=== PATIENT | female | born 1960 | race Caucasian/White ===

== ENCOUNTER 2021-10-27 15:00 | Observation (INO) ==
[2021-10-27] MEDS ORDERED: *HR* HYDROmorphone (PF) 1 MG/ML SYRINGE IVP ONE (15:09)
[2021-10-27] MEDS ORDERED: 0.9 % Sodium Chloride 1,000 ML IVC ONE ×2 (15:09→16:46)
[2021-10-27] MEDS ORDERED: Ondansetron 4 MG/2 ML VIAL IVP ONE (15:10)
[2021-10-27 15:26] LABS: Basophils # 0.1 K/mcL (0.0-0.2); Basophils % 0.3 %; Eosinophils # 0.1 K/mcL (0.0-0.6); Eosinophils % 0.4 %; Hematocrit 46.1 % (35.3-44.9); Hemoglobin 15.5 g/dL (11.5-15.4); Immature Granulocytes % 0.9 % (0-4); Lymphocytes # 4.9 K/mcL (0.6-4.6); Lymphocytes % 18.9 %; Mean Corpuscular HGB Conc 33.6 g/dL (31.6-35.5); Mean Corpuscular Hemoglobin 25.1 pg (28.0-33.3); Mean Corpuscular Volume 74.6 fL (83.0-100.0); Mean Platelet Volume 10.9 fL (9.4-12.4); Monocytes # 0.8 K/mcL (0.0-1.3); Neutrophils # 19.7 K/mcL (1.6-8.9); Platelet Count 433 K/mcL (140-400); Red Blood Count 6.18 M/mcL (3.82-4.97); Red Cell Distribution Width 14.3 % (11.5-14.5); Segmented Neutrophils % 76.5 %; White Blood Count 25.7 K/mcL (4.3-11.1)
[2021-10-27 15:46] LABS: Albumin 4.2 g/dL (3.5-5.7); Albumin/Globulin Ratio 0.8 (1.1-2.2); Bilirubin,Direct 0.2 mg/dL (0.0-0.2); Bilirubin,Indirect 0.5 mg/dL (0.0-1.0); Bilirubin,Total 0.7 mg/dL (0.3-1.0); Calcium 10.5 mg/dL (8.6-10.3); Globulin 5.2 g/dL (2.4-3.5); Potassium 2.9 mEq/L (3.5-5.1); Total Protein 9.4 g/dL (6.4-8.9)
[2021-10-27] MEDS ORDERED: Potassium Chloride Elixir 20 MEQ/15 ML UDC PO ONE ×2 (16:11→21:00)
[2021-10-27 16:31] LABS: Bilirubin,Urine Small (Negative); Blood,Urine Negative (Negative); Clarity,Urine Clear (Clear); Color,Urine Dark Yellow (Yellow); Glucose,Urine (UA) >=1000 mg/dL (Normal); Ketones,Urine Negative (Negative); Leukocyte Esterase,Urine Negative (Negative); Nitrite,Urine Negative (Negative); PH,Urine 5.5 pH Units (5.0-8.0); Protein,Urine 30 mg/dL (Neg-Trace); Specific Gravity,Urine <= 1.005 (1.010-1.025)
[2021-10-27 16:42] LABS: WBC,Urine 0-3 per hpf (0-3)
[2021-10-27] MEDS ORDERED: Ketorolac 30 MG/ML VIAL IVP ONE (17:34)
[2021-10-27] MEDS ORDERED: MetroNIDAZOLE 500 MG/100 ML 500 MG/100 ML BAG IVPB ONE (17:40)
[2021-10-27] MEDS ORDERED: levoFLOXacin 750 MG/150 ML 750 MG/150 ML BAG IVPB ONE (17:40)
[2021-10-27] MEDS ORDERED: Ondansetron 4 MG/2 ML VIAL IVP PRN (18:00)
[2021-10-27] MEDS ORDERED: Naloxone 0.4 MG/ML INJ IVP PRN (18:00)
[2021-10-27] MEDS ORDERED: *HR* Dextrose 50 % in Water (Syg) 50 ML SYRINGE IVP PRN (18:15)
[2021-10-27] MEDS ORDERED: Dextrose Gel 15 GM/37.5 ML TUBE PO PRN ×2 (18:15)
[2021-10-27] MEDS ORDERED: D5% in Water 1,000 ML IVC PRN (18:15)
[2021-10-27] MEDS: 0.9 % Sodium Chloride 1,000 ML IVC SCH (20:05)
[2021-10-27] MEDS: *HR* OxyCODONE/APAP 5/325 TABLET PO SCH (20:11)
[2021-10-28] MEDS: MetroNIDAZOLE 500 MG/100 ML 500 MG/100 ML BAG IVPB SCH ×3 (00:34→16:14)
[2021-10-28] MEDS: *HR* OxyCODONE/APAP 5/325 TABLET PO SCH ×3 (00:35→16:44)
[2021-10-28] MEDS: 0.9 % Sodium Chloride 1,000 ML IVC SCH (06:28)
[2021-10-28 07:57] LABS: Basophils % 0.1 %; Eosinophils % 0.2 %; Hematocrit 33.3 % (35.3-44.9); Hemoglobin 10.8 g/dL (11.5-15.4); Immature Granulocytes % 0.4 % (0-4); Lymphocytes # 1.4 K/mcL (0.6-4.6); Lymphocytes % 12.4 %; Mean Corpuscular HGB Conc 32.4 g/dL (31.6-35.5); Mean Corpuscular Hemoglobin 25.3 pg (28.0-33.3); Mean Platelet Volume 10.9 fL (9.4-12.4); Monocytes # 0.5 K/mcL (0.0-1.3); Monocytes % 4.8 %; Platelet Count 200 K/mcL (140-400); Red Blood Count 4.27 M/mcL (3.82-4.97); Red Cell Distribution Width 14.7 % (11.5-14.5); Segmented Neutrophils % 82.1 %; White Blood Count 10.9 K/mcL (4.3-11.1)
[2021-10-28 08:08] LABS: Calcium 8.6 mg/dL (8.6-10.3); Potassium 4.1 mEq/L (3.5-5.1)
[2021-10-28] MEDS: lisinopriL 20 MG TABLET PO SCH (08:23)
[2021-10-28] MEDS ORDERED: *HR* OxyCODONE/APAP 5/325 TABLET PO PRN (15:38)
[2021-10-28] MEDS: Insulin LISPRO 300 UNITS/3 ML VIAL SUBQ SCH ×2 (16:45→20:06)
[2021-10-28] MEDS ORDERED: levoFLOXacin 500 MG/100 ML 500 MG/100 ML BAG IVPB SCH (19:00)
[2021-10-29] MEDS: MetroNIDAZOLE 500 MG/100 ML 500 MG/100 ML BAG IVPB SCH ×3 (00:22→15:32)
[2021-10-29 07:26] LABS: Basophils % 0.3 %; Eosinophils # 0.1 K/mcL (0.0-0.6); Eosinophils % 0.7 %; Hematocrit 34.8 % (35.3-44.9); Hemoglobin 11.2 g/dL (11.5-15.4); Immature Granulocytes % 0.4 % (0-4); Lymphocytes # 1.3 K/mcL (0.6-4.6); Lymphocytes % 16.9 %; Mean Corpuscular HGB Conc 32.2 g/dL (31.6-35.5); Mean Corpuscular Volume 77.7 fL (83.0-100.0); Mean Platelet Volume 10.9 fL (9.4-12.4); Monocytes # 0.5 K/mcL (0.0-1.3); Monocytes % 6.2 %; Neutrophils # 5.7 K/mcL (1.6-8.9); Platelet Count 147 K/mcL (140-400); Red Blood Count 4.48 M/mcL (3.82-4.97); Red Cell Distribution Width 14.6 % (11.5-14.5); Segmented Neutrophils % 75.5 %; White Blood Count 7.6 K/mcL (4.3-11.1)
[2021-10-29] MEDS: Insulin LISPRO 300 UNITS/3 ML VIAL SUBQ SCH ×3 (07:55→17:50)
[2021-10-29] MEDS: lisinopriL 20 MG TABLET PO SCH (07:57)
[2021-10-29] MEDS ORDERED: *HR* OxyCODONE/APAP 5/325 TABLET PO PRN (08:09)
[2021-10-29 08:15] LABS: Calcium 9.1 mg/dL (8.6-10.3)
[2021-10-29] MEDS: amLODIPine 5 MG TABLET PO SCH (08:27)
[2021-10-29] MEDS: Acetaminophen 325 MG TABLET PO PRN (08:27)
[2021-10-29] MEDS ORDERED: Acetaminophen 325 MG TABLET PO ONE (18:21)
[2021-10-30] MEDS: Insulin LISPRO 300 UNITS/3 ML VIAL SUBQ SCH ×5 (03:22→21:41)
[2021-10-30] MEDS: MetroNIDAZOLE 500 MG/100 ML 500 MG/100 ML BAG IVPB SCH ×3 (03:23→15:14)
[2021-10-30] MEDS: *HR* Enoxaparin 40 MG/0.4 ML SYRINGE SQ SCH (05:50)
[2021-10-30] MEDS: lisinopriL 20 MG TABLET PO SCH (07:57)
[2021-10-30] MEDS: amLODIPine 5 MG TABLET PO SCH (07:58)
[2021-10-30] MEDS: Acetaminophen 325 MG TABLET PO PRN ×2 (15:13→21:44)
[2021-10-30] MEDS: metroNIDAZOLE 500 MG TABLET PO SCH (21:41)
[2021-10-31] MEDS: *HR* Enoxaparin 40 MG/0.4 ML SYRINGE SQ SCH (06:05)
[2021-10-31 06:53] VITALS: BP 157/79; PULSE 88; RESP 18; TEMP 97.8; O2SAT 95
[2021-10-31] MEDS: metroNIDAZOLE 500 MG TABLET PO SCH (07:41)
[2021-10-31] MEDS: lisinopriL 20 MG TABLET PO SCH (07:41)
[2021-10-31] MEDS: Insulin LISPRO 300 UNITS/3 ML VIAL SUBQ SCH (07:42)
[2021-10-31] MEDS ORDERED: amLODIPine 5 MG TABLET PO SCH (09:00)
== END 2021-10-31 11:08 | disposition home or self-care (01) ==
LOC: EMEROOPIK 15:00 → INPPIK 15:00
PROVIDERS: ADMIT Registered Nurse Emergency; ATTEND Registered Nurse Emergency